=== PATIENT | male | born 2000 | race Two or more races ===

== ENCOUNTER 2020-09-15 20:34 | Emergency (ER) | payer SELFPAY ==
[~2020-09-15] VITALS: Ht 185.4 cm; Wt 82.6 kg
[2020-09-15 21:05] LABS: Basophils # (auto) 0.1 10 ^3/uL (0-0.2); Basophils % (auto) 0.6 % (0.0-2.0); Eosinophils # (auto) 0 10 ^3/uL (0-0.8); Eosinophils % (auto) 0.5 % (0.0-7.0); Hematocrit 44.1 % (41.0-53.0); Hemoglobin 16.1 g/dL (13.5-17.5); Lymphocytes # (auto) 2.8 10 ^3/uL (0.4-5.4); Mean Corpuscular Hemoglobin 32.7 pg (28.0-32.0); Mean Corpuscular Hgb Conc. 36.4 g/dL (32.0-36.0); Mean Corpuscular Volume 89.9 fL (80.0-100.0); Monocytes # (auto) 0.7 10 ^3/uL (0-1.3); Monocytes % (auto) 7.1 % (0.0-12.0); Neutrophils # (auto) 5.7 10 ^3/uL (1.6-8.6); Neutrophils % (auto) 61.8 % (37.0-80.0); Nucleated Red Blood Cells % 0.1 %; Platelet Count (auto) 259 10^3/uL (140-450); Red Cell Distribution Width 12.7 % (11.8-14.3); White Blood Cell 9.2 10^3/uL (4.4-10.8)
[2020-09-15 21:22] LABS: Albumin 4.7 g/dL (3.4-5.0); Anion Gap 6 (5-15); Blood Urea Nitrogen 15 mg/dL (7-18); Carbon Dioxide 25 mmol/L (21-32); Chloride 105 mmol/L (98-107); GFR African American 169 mL/min; GFR Non-African American 140 mL/min; Glucose 88 mg/dL (74-106); Potassium 3.6 mmol/L (3.5-5.1); Sodium 136 mmol/L (136-145)
[2020-09-15 21:27] LABS: Alanine Aminotransferase 51 U/L (16-61); Alkaline Phosphatase 99 U/L (45-117); Aspartate Aminotransferase 27 U/L (15-37); Bilirubin, Total 0.8 mg/dL (0.2-1.0); Total Protein 8.2 g/dL (6.4-8.2)
[2020-09-15 23:37] LABS: Cholesterol 172 mg/dL (< 200)
[2020-09-15 23:39] LABS: HDL Cholesterol 43 mg/dL (40-59); LDL Cholesterol 124 mg/dL (< 100); Triglycerides 32 mg/dL (< 150)
[2020-09-16] MEDS ORDERED: KETOROLAC TROMETH 30 MG/ML 1ML VIAL IV ONE (00:45)
[2020-09-16 02:54] VITALS: BP 123/81
== END 2020-09-16 03:13 | disposition home or self-care (01) ==
LOC: ER 20:44
DX: R07.89 Other chest pain (principal)
CPT/HCPCS: 36415; 71045; 80053; 80061; 84484; 85025; 93005; 96374; 99285; J1885